=== PATIENT | female | born 1970 | race Caucasian/White ===

== ENCOUNTER 2017-06-18 17:25 | Emergency (ER) | payer BC ==
[~2017-06-18] VITALS: Ht 157.5 cm; Wt 89.0 kg
[2017-06-18] MEDS ORDERED: PREDNISONE50 MG PO (19:38)
[2017-06-18 20:13] VITALS: BP 110/74
== END 2017-06-18 20:15 | disposition home or self-care (01) ==
LOC: EME 17:25
DX: T78.09XA Anaphylactic reaction due to other food products, initial encounter (principal); Z88.0 Allergy status to penicillin; Z98.84 Bariatric surgery status
CPT/HCPCS: 99281; 99284; J0171; J1200; J2930